=== PATIENT | female | born 1955 | race Caucasian/White ===

== ENCOUNTER 2017-01-13 15:44 | Emergency (ER) | payer OTHER ==
[~2017-01-13] VITALS: Wt 67.0 kg
[2017-01-13] MEDS ORDERED: CLOT30CR24 TOP (17:46)
--- NOTE | 2017-01-13 17:46 | ERD ---
ER Documentation Chief Complaint Date/Time DATE: 01/13/17 TIME: 17:38 Chief Complaint GENERALIZED RASH X 1 WEEK HPI 61-year-old female who presents to the emergency room for generalized rash for about a week. Stated that the rashes are itchy. Stated that her itchiness is worse at night. No changes in detergents. No changes in her diet. No fever and chills. Stated that rashes are more on her upper arms. Denies headache, loss of consciousness, dizziness, blurry vision, changes in vision, photophobia, facial pain, ear pain, throat pain, difficulty swallowing, neck pain, shoulder pain, chest pain, cough, hemoptysis, abdominal pain, back pain, loss of appetite, nausea, vomiting, hematochezia, diarrhea, constipation, urinary symptoms, bladder and bowel incontinences, extremity weakness, extremity tenderness, numbness or tingling sensation, difficulty walking, recent travel, recent exposure to illness, recent antibiotic use in the last 3 months, fever, chills. Allergy: No known drug allergies. PMH: Diabetes, high cholesterol, hypertension. Family medical history: Medications: Aspirin. Surgery: Primary Social History: Denies smoking, use of alcohol, use of illegal drugs. ROS All systems reviewed and are negative except as per history of present illness. Medications Home Meds Active Scripts Prednisone* (Prednisone*) 20 Mg Tab, 40 MG PO DAILY for 4 Days, TAB Prov:PASILABAN,RADHAAR F 01/13/17 Diphenhydramine Hcl* (Benadryl*) 25 Mg Cap, 25 MG PO Q6 Y for ITCHING/RASH, #30 TAB Prov:PASILABAN,RADHAAR F 01/13/17 Clotrimazole* (Clotrimazole* AF) 1% - 30 Gm Cream.gm., 1 APPLIC TOP BID for 7 Days, TUB Prov:PASILABAN,KLAR F 01/13/17 Allergies Allergies: Coded Allergies: No Known Allergy (Unverified , 07/30/14) PMhx/Soc Hx Cardiac Disorders: Yes (high cholesterol) Hx Miscellaneous Medical Probl: Yes (dm) Hx Alcohol Use: No Hx Substance Use: No Hx Tobacco Use: No Physical Exam Vitals Vital Signs Date Time Temp Pulse Resp B/P Pulse Ox O2 Delivery O2 Flow Rate FiO2 01/13/17 15:48 98.0 71 18 132/78 99 Physical Exam Const: Head: Atraumatic Eyes: Normal Conjunctiva ENT: Normal External Ears, Nose and Mouth. Tolerating secretions. No throat tightness. Patent airway. Speaks full and clear sentences. Neck: Full range of motion..~ No meningismus. Resp: Clear to auscultation bilaterally. No retractions. Cardio: Regular rate and rhythm, no murmurs Abd: Soft, non tender, non distended. Normal bowel sounds Skin: No petechiae. Bilateral upper extremity rashes that is described as we wheel-like and erythematous. Circular patches rash. No vesicular rash. Back: No midline or flank tenderness Ext: No cyanosis, or edema Neur: Awake and alert Psych: Normal Mood and Affect Procedures/MDM Examination: Please see physical examination. Disease process, medical treatment was explained to the patient and family member. They verbalized understanding and agreed with the medical treatment, and follow-up care. Differential diagnosis: Shingles versus scabies versus atopic dermatitis versus ringworm Medical decision makin-year-old female who presents to the emergency room for generalized rash for about a week. Stated that the rashes are itchy. Stated that her itchiness is worse at night. No changes in detergents. No changes in her diet. No fever and chills. Stated that rashes are more on her upper arm. Patient's complaint, patient's history about her complaint, my physical findings are consistent with my final diagnosis of ringworm. Medications prescribed are the following: Lotrimin cream. Prednisone. Patient and family member are made aware of the side effects and adverse reactions of the medications prescribed. Instructed on when to seek emergent and medical attention in case allergic/anaphylactic reactions or severe side effects and or adverse reactions to medications. Patient and family member verbalized understanding. Patient instructed Instructed to follow-up with his PCP in 24-48 hours. Stated that she will make sure to follow-up with her primary care provider in the next 24 hours. Instructed to Call 911 for chest pain, shortness of breath. Advised to come back here in ED as soon as possible for severity of symptoms which includes but not limited to: any new symptoms; shortness of breath/difficulty of breathing; cardiovascular changes; severe gastrointestinal symptoms; signs and symptoms of bleeding and or infection; signs of compartment syndrome/neurovascular changes; neurological changes/deficits. Patient and family member verbalized understanding. Upon discharge, patient is alert and oriented x 4, speaks full and clear sentences, denies pain, has no neurological deficits, has no neurovascular deficits, difficulty of breathing. Breathing even and unlabored. Lung sounds are clear to auscultation. Not in distress. Appears comfortable. Ambulatory with steady gait. Appears satisfied with care provided here in ED. Departure Diagnosis: Primary Impression: Rash Additional Impression: Ringworm Condition: Good Additional Instructions: Patient instructed Instructed to follow-up with his PCP in 24-48 hours. 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 Instructed to Call 911 for chest pain, shortness of breath. Advised to come back here in ED as soon as possible for severity of symptoms which includes but not limited to: any new symptoms; shortness of breath/difficulty of breathing; cardiovascular changes; severe gastrointestinal symptoms; signs and symptoms of bleeding and or infection; signs of compartment syndrome/neurovascular changes; neurological changes/deficits. ALIZA QUEVEDO Jan 13, 2017 17:46 ALIZA QUEVEDO Jan 13, 2017 17:46
[2017-01-13] MEDS ORDERED: BEN25 PO (17:48)
[2017-01-13] MEDS ORDERED: PRED20TA PO (17:48)
== END 2017-01-13 17:48 | disposition home or self-care (01) ==
LOC: E/R 15:44
DX: R21 Rash and other nonspecific skin eruption (principal); B35.9 Dermatophytosis, unspecified; I10 Essential (primary) hypertension; E11.9 Type 2 diabetes mellitus without complications; Z79.82 Long term (current) use of aspirin
CPT/HCPCS: 99283

== ENCOUNTER 2017-06-02 12:35 | Day surgery (SDC) | payer OTHER ==
[~2017-06-02] VITALS: Ht 172.7 cm; Wt 66.0 kg
[~2017-06-02 12:35] MED LIST: BEN25 PO; CLOT30CR24 TOP; PRED20TA PO
[2017-06-02] MEDS ORDERED: METFORMIN (13:12)
[2017-06-02] MEDS ORDERED: AMLODIPINE (13:12)
[2017-06-02] MEDS ORDERED: ASPIRIN (13:12)
[2017-06-02] MEDS ORDERED: LORATADINE (13:12)
[2017-06-02] MEDS ORDERED: GLIMEPIRIDE (13:12)
[2017-06-02] MEDS ORDERED: RANITIDINE (13:12)
[2017-06-02] MEDS ORDERED: BENAZEPRIL (13:12)
[2017-06-02 13:18] VITALS: Ht 172.7 cm; Wt 66.0 kg
[2017-06-02 14:13] VITALS: BP 159/81; PULSE 99; RESP 18
--- NOTE | 2017-06-02 14:42 | OPPN ---
Date/Time of Note Date/Time of Note DATE: 06/02/17 TIME: 14:41 Operative Report Preoperative Diagnosis Positive occult blood in stool Postoperative Diagnosis Internal hemorrhoids Poor prep making the exam suboptimal Operation/Procedure Performed Colonoscopy Provider: NEFTALI DONALDSON MD Anesthesia Type: moderate sedation Estimated blood loss: none Transfusion Required: no Specimen: none Grafts/Implants: none Complications: no NEFTALI DONALDSON MD Jun 02, 2017 14:42
[2017-06-02] MEDS ORDERED: MIDAZOLAM 1 MG/ML 2 ML INJ ONE ×2 (14:48)
[2017-06-02] MEDS ORDERED: FENTAnyl 50 MCG/ML VIAL ONE (14:49)
[2017-06-02 15:08] VITALS: BP 128/73; PULSE 84; RESP 14
--- NOTE | 2017-06-02 16:16 | GILP ---
DATE OF PROCEDURE: 06/02/2017 SURGEON: Flaquito Santa MD PROCEDURE PERFORMED: Colonoscopy. PREOPERATIVE DIAGNOSIS: Positive occult blood in stool. POSTOPERATIVE DIAGNOSES: 1. Colonoscopy all the way to the cecum. 2. Poor prep, making the exam suboptimal. 3. Internal hemorrhoids. 4. No gross neoplasm was identified. INDICATIONS FOR PROCEDURE: Ms. Kayla Hernández is a 61-year- old female patient who was noted to have occult blood in stool. Patient was scheduled for colonoscopy for further evaluation. The procedure and possible complications were well explained to the patient and the family and consent was obtained. DESCRIPTION OF PROCEDURE: Under the influence of fentanyl and Versed, the colonoscope was carefully introduced in the rectum and under direct vision, it was advanced all the way to the cecum. FINDINGS: The patient had poor prep making the exam suboptimal. The patient was noted to have internal hemorrhoids. No gross neoplasm was identified. She tolerated the procedure well and there was no complication from the procedure. At the end of procedure, she was awake with stable vital signs and she was discharged home in the care of her family. IMPRESSION: Please see postop diagnoses. PLAN: Because of the poor prep and suboptimal nature of the examination, the patient will need repeat colonoscopy with better preparation in 1 year. Dictated By: MD ROBERTO Chavez/kari/wilton /Document#: [id number]
== END 2017-06-02 15:21 | disposition home or self-care (01) ==
LOC: GIL 12:35
PROVIDERS: ATTEND Internal Medicine Gastroenterology
DX: K64.8 Other hemorrhoids (principal); R19.5 Other fecal abnormalities; I10 Essential (primary) hypertension; E11.9 Type 2 diabetes mellitus without complications
CPT/HCPCS: 45378; J2250; J3010; Z7610